=== PATIENT | male | born 1985 | race Caucasian/White ===

== ENCOUNTER 2023-10-15 16:53 | Emergency (ER) | payer OTHER ==
[2023-10-15] MEDS: Fluorescein 1 MG Ophth Strip EYERT ONE (17:18)
[2023-10-15] MEDS: Tetracaine HCl/PF 0.5% 4 ML Bottle EYERT ONE (17:19)
[2023-10-15] MEDS: Diphtheria,Pertussis(Acell),Tetanus Vaccine 0.5 ML Syringe IM ONE (17:22)
[2023-10-15] MEDS: Cyclopentolate 2% Ophth Soln 5 ML Bottle EYERT ONE (18:28)
[2023-10-15] MEDS: Timolol Maleate 0.5% Ophth Soln 5 ML Bottle EYERT SCH (18:28)
[2023-10-15] MEDS: prednisoLONE Acetate 1% Ophth Susp 5 ML Bottle EYERT SCH (18:29)
[2023-10-15] MEDS: Erythromycin Base 0.5% Ophth Oint 1 GM Tube EYEBOTH ONE (18:31)
[2023-10-15] MEDS: Iopamidol 755 Mg/ML 100 ML Bottle IVPUSH ONE (18:41)
== END 2023-10-15 19:55 | disposition home or self-care (01) ==
LOC: CC.ED 16:53
DX: S05.11XA Contusion of eyeball and orbital tissues, right eye, initial encounter (principal); H20.9 Unspecified iridocyclitis; Z23 Encounter for immunization; W22.8XXA Striking against or struck by other objects, initial encounter
CPT/HCPCS: 70487; 90471; 90715; 99283; A9270; Q9967; 99284